=== PATIENT | female | born 1985 | race Caucasian/White ===

== ENCOUNTER 2020-01-25 06:37 | Outpatient (CLI) | payer BC, OTHER ==
[2020-01-25 16:31] LABS: BHCG - Serum Negative (NEGATIVE); Pregs Control Background? CLEAR/WHITE (CLR/WHITE); Pregs Control Bar Appear? YES (CONTROL BAR)
[2020-01-26 11:34] LABS: SARS-CoV-2 MS2 Positive; SARS-CoV-2 N Gene Negative; SARS-CoV-2 S Gene Negative; SARS-CoV-2 by NAA Not Detected (NotDetected); SARS-CoV-2 orf1ab Negative
== END 2020-01-25 06:38 | disposition home or self-care (01) ==
LOC: LABBT 06:37
PROVIDERS: ATTEND Neurological Surgery
DX: Z01.812 Encounter for preprocedural laboratory examination (principal); Z20.828 Contact with and (suspected) exposure to other viral communicable diseases; M79.602 Pain in left arm
CPT/HCPCS: 84703; 87635; U0003

== ENCOUNTER 2020-01-28 05:56 | Day surgery (SDC) | payer BC ==
[2020-01-26 13:55] VITALS: BMI 26.6
[2020-01-28] MEDS ORDERED: Midazolam HCl 2 mg/2 ml Vial ONE (06:13)
[2020-01-28] MEDS ORDERED: Fentanyl 100 MCG/2 ML VIAL ONE ×2 (06:14→08:58)
[2020-01-28] MEDS ORDERED: Famotidine/PF 20 mg/2ml Vial ONE (06:14)
[2020-01-28] MEDS ORDERED: Scopolamine 1.5 mg/72 hour Patch ONE (06:14)
[2020-01-28] MEDS ORDERED: Ondansetron PF 4 MG/2 ML Vial ONE ×2 (06:14→11:13)
[2020-01-28] MEDS ORDERED: Thrombin 5000 UNITS/5 ML VIAL ONE (06:37)
[2020-01-28] MEDS ORDERED: SUGAMMADEX SODIUM 200 MG/2 ML VIAL ONE (08:43)
[2020-01-28] MEDS ORDERED: HYDROcodone/Acetaminophen 5/325 mg Tablet ONE (09:50)
[2020-01-28] MEDS ORDERED: Dexamethasone 20 MG/5 ML VIAL ONE (11:13)
[2020-01-28] MEDS ORDERED: Ketorolac Tromethamine 30 MG/ML VIAL ONE (11:13)
[2020-01-28] MEDS ORDERED: Rocuronium Bromide 10 MG/ML (10ML VIAL) ONE (11:13)
[2020-01-28] MEDS ORDERED: Glycopyrrolate 0.2 MG/ML 5 ML SYRINGE ONE (11:13)
[2020-01-28] MEDS ORDERED: PROPOFOL 200 MG/20 ML VIAL ONE (11:13)
[2020-01-28] MEDS ORDERED: Lidocaine 1% PF 5 ML VIAL ONE (11:13)
[2020-01-28] MEDS ORDERED: Succinylcholine 200 MG/10 ml SYRINGE FS ONE (11:13)
--- NOTE | 2020-01-29 13:39 | OP ---
DATE OF PROCEDURE: 01/28/2020 ASSIGNMENT AGENT: Wally Lund PA-C INDICATION: Pain and prevent neurologic decline. DIAGNOSIS: Cervical radiculopathy. PROCEDURE PERFORMED: Anterior cervical diskectomy and fusion, C5-6. ANESTHESIA: General. DESCRIPTION OF PROCEDURE: The patient was brought into the operating room and placed under general anesthesia. She was placed on the table in a supine position. A transverse incision was planned over the lateral aspect of the neck on the right. After prepping and draping and after an appropriate preoperative pause, the incision was created. The underlying platysma muscle was identified and incised. A blunt tissue plane anterior to the sternocleidomastoid muscle was used to gain access to the prevertebral space. After confirming the appropriate level with C-arm fluoroscopy, an annulotomy was performed at C5-C6 disk space. The disk material as well as anterior and posterior osteophytes were removed until there was a complete decompression of the underlying nerve roots. A 7 mm lordotic PEEK cage packed with allograft and autograft material was placed within the interbody space. A separate anterior cervical plate was then fashioned to the front of spine and secured with a total of 4 fixed screws. Midline and lateral structures were inspected and found to be free from significant trauma. The wound was irrigated. Hemostasis was maintained throughout. The wound was then closed in anatomic layers, and a pressure dressing was applied. There were no known procedural complications. Job ID: [id number]
== END 2020-01-28 11:25 | disposition home or self-care (01) ==
LOC: SDC 05:56
PROVIDERS: ATTEND Neurological Surgery
PROC: 0RG10A0 Fusion of Cervical Vertebral Joint with Interbody Fusion Device, Anterior Approach, Anterior Column, Open Approach (ICD-10-PCS; principal; 2020-01-28)
PROC: 0RT30ZZ Resection of Cervical Vertebral Disc, Open Approach (ICD-10-PCS; principal; 2020-01-28)
DX: M50.122 Cervical disc disorder at C5-C6 level with radiculopathy (principal); M50.022 Cervical disc disorder at C5-C6 level with myelopathy; Z79.899 Other long term (current) drug therapy; Z88.8 Allergy status to other drugs, medicaments and biological substances
CPT/HCPCS: 76000; C1713; C1776; J0690; J1100; J1885; J2250; J2405; J2704; J3010; S0028

== ENCOUNTER 2023-05-10 15:25 | Outpatient (CLI) | payer BC | END 2023-05-10 15:26 | disposition home or self-care (01) | LOC: BICMAMMO 15:25 | PROVIDERS: ATTEND Physician Assistant | DX: Z12.31 Encounter for screening mammogram for malignant neoplasm of breast (principal); N63.15 Unspecified lump in the right breast, overlapping quadrants; N63.20 Unspecified lump in the left breast, unspecified quadrant | CPT/HCPCS: 77063; 77067 ==

== ENCOUNTER 2023-05-13 14:21 | Outpatient (CLI) | payer BC | END 2023-05-13 14:22 | disposition home or self-care (01) | LOC: BICMAMMO 14:21 | PROVIDERS: ATTEND Physician Assistant | DX: N63.15 Unspecified lump in the right breast, overlapping quadrants (principal); N63.20 Unspecified lump in the left breast, unspecified quadrant | CPT/HCPCS: 76642; 77066; G0279 ==